=== PATIENT | male | born 1990 | race African-American/Black ===

== ENCOUNTER 2022-03-20 17:22 | Emergency (ER) | payer MEDICAID ==
[~2022-03-20] VITALS: Ht 182.9 cm; Wt 91.0 kg
[2022-03-20] MEDS ORDERED: IBUPROFEN 800MG TABLET PO ONE (18:00)
[2022-03-20 18:27] VITALS: BP 160/98
== END 2022-03-20 18:30 | disposition home or self-care (01) ==
LOC: ER 17:22
DX: S63.592A Other specified sprain of left wrist, initial encounter (principal); V43.52XA Car driver injured in collision with other type car in traffic accident, initial encounter; Y93.89 Activity, other specified; Y92.410 Unspecified street and highway as the place of occurrence of the external cause; Y99.8 Other external cause status
CPT/HCPCS: 99283